=== PATIENT | female | born 1970 | race Two or more races ===

== ENCOUNTER 2017-05-13 06:12 | Emergency (ER) | END 2017-05-13 07:30 | disposition home or self-care (01) | DX: S39.012A Strain of muscle, fascia and tendon of lower back, initial encounter (principal); X58.XXXA Exposure to other specified factors, initial encounter; Y92.39 Other specified sports and athletic area as the place of occurrence of the external cause | CPT/HCPCS: 96372; J1885; Z7502 ==

== ENCOUNTER 2017-05-14 23:18 | Emergency (ER) | END 2017-05-14 23:30 | disposition left against medical advice (07) | DX: Z53.21 Procedure and treatment not carried out due to patient leaving prior to being seen by health care provider (principal) ==

== ENCOUNTER 2018-06-15 11:38 | Emergency (ER) | END 2018-06-15 12:53 | disposition home or self-care (01) ==

== ENCOUNTER 2018-07-02 12:28 | Emergency (ER) | END 2018-07-02 14:40 | disposition home or self-care (01) ==

== ENCOUNTER 2018-09-03 22:07 | Emergency (ER) | END 2018-09-04 01:10 | disposition home or self-care (01) ==

== ENCOUNTER 2018-12-10 17:57 | Emergency (ER) | payer SELFPAY ==
[~2018-12-10] VITALS: Ht 180.3 cm; Wt 67.9 kg
[~2018-12-10 17:57] MED LIST: CYCL10TA7 PO; IBUP-1542 PO; NAPR-985 PO; OXYC-279 PO
[2018-12-10 18:00] VITALS: Ht 180.3 cm; Wt 67.9 kg
--- NOTE | 2018-12-10 21:59 | ERD ---
ER Documentation Chief Complaint Chief Complaint pain and burning with urination x 1 week HPI This is a 48-year-old female with no cement past history presents to the ED with complaints of dysuria, frequency, urgency x1 week. Patient states she went to the bathroom today and noticed urinary spotting as well. She also reports a vaginal discharge. She does states she is in a serious murmurs relationship with one partner however does not know if she was exposed to STDs. She denies any associated fevers, chills, flank pain, abdominal pain, nausea, vomiting, diarrhea or any other symptoms. She states her last UTI was several years ago and that today's symptoms seem similar. ROS All systems reviewed and are negative except as per history of present illness. Medications Home Meds Active Scripts Fluconazole* (Fluconazole*) 150 Mg Tablet, 150 MG PO ONCE, #1 TAB Prov:MIKE JESUS PA-C 12/10/18 Cephalexin* (Keflex*) 500 Mg Capsule, 500 MG PO BID for 7 Days, CAP Prov:MIKE JESUS PA-C 12/10/18 Oxycodone HCl/Acetaminophen (Percocet 5-325 mg Tablet) 1 Each Tablet, 1 EACH PO TID PRN for PAIN LEVEL 6-10, #12 TAB Prov:AMAYA BOYD MD 09/04/18 Naproxen* (Naprosyn*) 500 Mg Tablet, 500 MG PO BID PRN for PAIN AND/OR INFLAMMATION, #30 TAB Prov:AMAYA BOYD MD 09/04/18 Cyclobenzaprine Hcl* (Cyclobenzaprine Hcl*) 10 Mg Tablet, 10 MG PO TID, #30 TAB Prov:AMOR LUGO PA-C 05/13/17 Ibuprofen* (Motrin*) 600 Mg Tab, 600 MG PO Q6H PRN for PAIN AND OR ELEVATED TEMP, #30 TAB Prov:AMOR LUGO PA-C 05/13/17 Allergies Allergies: Coded Allergies: shellfish derived (Verified Allergy, Unknown, 09/03/18) PMhx/Soc History of Surgery: Yes (;[facility] Breasts Augmentation) Anesthesia Reaction: No Hx Neurological Disorder: No Hx Respiratory Disorders: No Hx Cardiac Disorders: No Hx Psychiatric Problems: No Hx Miscellaneous Medical Probl: No Hx Alcohol Use: No Hx Substance Use: No Hx Tobacco Use: No Smoking Status: Never smoker Physical Exam Vitals Vital Signs Date Temp Pulse Resp B/P (MAP) Pulse Ox O2 O2 Flow FiO2 Time Delivery Rate 12/10/18 98.1 85 18 106/67 94 18:00 (80) Physical Exam Const: No acute distress Head: Atraumatic Eyes: Normal Conjunctiva ENT: Normal External Ears, Nose and Mouth. Neck: Full range of motion. No meningismus. Resp: Clear to auscultation bilaterally Cardio: Regular rate and rhythm, no murmurs Abd: Soft, + mild suprapubic tenderness. non distended. Normal bowel sounds Skin: No petechiae or rashes Back: No midline or flank tenderness Ext: No cyanosis, or edema Neur: Awake and alert Psych: Normal Mood and Affect Results 24 hrs Laboratory Tests Test 12/10/18 22:01 12/10/18 22:04 Urine Color YELLOW Urine Clarity CLOUDY Urine pH 5.0 Urine Specific Burden 1.016 Urine Ketones TRACE mg/dL Urine Nitrite POSITIVE mg/dL Urine Bilirubin NEGATIVE mg/dL Urine Urobilinogen NEGATIVE mg/dL Urine Leukocyte Esterase 3+ Doreen/ul Urine Microscopic RBC > 182 /HPF Urine Microscopic WBC > 182 /HPF Urine Bacteria FEW /HPF Urine Mucus MODERATE /HPF Urine Hemoglobin 3+ mg/dL Urine Glucose NEGATIVE mg/dL Urine Total Protein 2+ mg/dl Bedside Glucose 85 mg/dL POC Beta HCG, Qualitative NEGATIVE Current Medications Medications Dose Sig/Slim Start Time Status Last (Trade) Ordered Route PRN Stop Time Admin Dose Reason Admin Ceftriaxone 1 gm ONCE ONCE 12/10/18 DC Sodium IM 23:30 (Rocephin) 12/10/18 23:31 Lidocaine 5 ml ONCE ONCE 12/10/18 DC (Xylocaine INFIL 23:30 1% (Mpf)) 12/10/18 23:31 Procedures/MDM EMERGENT LABS AND DIAGNOSTIC STUDIES: Lab Results above were reviewed and interpreted by me as below. Urine: Evidence of hematuria and pyuria, consistent with urinary tract infection Urine GC, chlamydia cultures: Pending Nursing Notes Reviewed. Previous Medical Records requested via the Electronic Health Record. EMERGENCY DEPARTMENT COURSE / MEDICAL DECISION MAKIN-year-old female presents with symptoms concerning for cystitis. UA confirmed diagnosis. She was given IM Rocephin here and discharged home with prescription for Keflex. Patient states she has a history of fungal infection status post antibiotics and requested a prescription for fluconazole as well, which was provided. Given her history of vaginal discharge, I offered GC and Chlamydia testing which patient consented to but deferred treatment for. She is afebrile here and vital signs are stable. I have low suspicion for intraabdominal abscess, severe dehydration, sepsis, pyelonephritis or surgical abdomen. Patient is to follow up with PCP in the next few days, take antibiotics as prescribed and return to the ED immediately for increase in symptoms, change in symptoms or any other concern. Prior to discharge, patients vital signs have been reviewed PRESCRIPTIONS: Keflex, fluconazole SPECIALIST FOLLOW UP RECOMMENDED: None Patient has been advised to follow up with primary care in 1-2 days. Departure Diagnosis: Primary Impression: UTI (urinary tract infection) Urinary tract infection type: acute cystitis Hematuria presence: with hematuria Qualified Codes: N30.01 - Acute cystitis with hematuria Condition: Stable Patient Instructions: Understanding Urinary Tract Infections (UTIs) Referrals: [facility] MIKE JESUS PA-C Dec 10, 2018 21:59
[2018-12-10] MEDS ORDERED: LIDOCAINE 1% (MPF) 5 ML VIAL INFIL ONE (23:30)
[2018-12-10] MEDS ORDERED: CEFTRIAXONE 1 GM INJ IM ONE (23:30)
[2018-12-10] MEDS ORDERED: CEPH-443 PO (23:32)
[2018-12-10] MEDS ORDERED: FLUC150T41 PO (23:32)
[2018-12-11 00:08] VITALS: BP 102/62; PULSE 66; RESP 16
== END 2018-12-11 00:15 | disposition home or self-care (01) ==
LOC: FTE 17:57
DX: N30.01 Acute cystitis with hematuria (principal); N89.8 Other specified noninflammatory disorders of vagina
CPT/HCPCS: 81001; 81025; 82962; 87086; 87591; 96372; 99284; J0696